=== PATIENT | female | born 1945 | race Caucasian/White ===

== ENCOUNTER → 2019-11-03 | Outpatient (CLI) | payer MEDICARE, OTHER ==
--- NOTE | 2019-11-03 12:03 | KCIC ---
MRI Lumbar Spine without contrast History: Lumbar radiculopathy, right low back pain to the knee for 3 weeks Technique: Multiplanar, multi sequential noncontrast MR imaging was performed of the lumbar spine. Comparison: None Findings: Lumbar vertebral body stature is maintained. There is grade 1 anterior spondylolisthesis L4-5, negligible anterior spondylolisthesis L3-4. There is mild to moderate L4-5 degenerative disc disease, mild disc desiccation L2-3, L3-4, and L5-S1. There is prominent nonspecific edema of the posterior subcutaneous fat of the lower back. There is very large hemangioma of the L3 vertebral body extending to the right pedicle and transverse process, small focus of L1. There is small anterior annular tear L2-3. Conus terminates at mid to superior aspect of L2. 1 cm T2 hyperintense lesion of the visualized left kidney is statistically more likely a cyst. L1-L2: This level was not included on the axial images. Neural foramina and spinal canal are adequate. L2-L3: There is negligible disc osteophyte complex and bulge. There is minimal buckling of the ligamentum flavum. Spinal canal and neural foramina are adequate. L3-L4: There is mild prominence of posterior epidural fat. There is mild buckling of the ligamentum flavum and facet hypertrophic change. There is minimal fluid in the right facet articulation. There is minimal posterior bulge. Spinal canal is overall adequate. Bulge is near the undersurfaces of the exiting L3 nerve roots greater on the right including in the extraforaminal region without displacement, minimal narrowing of the inferior right neural foramen. L4-L5: There is mild buckling of the ligamentum flavum and [id number] facet degenerative change. There is partial uncovering of the posterior aspect of the disc due to spondylolisthesis with minimal superimposed disc osteophyte complex. There is mild narrowing of the far left lateral recess from posteriorly. Neural foramina are overall adequate, no displacement of the exiting L4 nerve roots. L5-S1: There is shallow protrusion eccentric to left lateral recess about 2 to 3 mm AP, near the descending left S1 nerve root without significant impingement or spinal stenosis. There is mild facet degenerative change. There is mild bilateral neural foramina compromise. Impression: 1. There is grade 1 anterior spondylolisthesis at L4-5 and negligible anterior spondylolisthesis L3-4. There is multilevel lumbar facet degenerative change. There is degenerative disc disease greatest at L4-5. There is no significant lumbar spinal stenosis, minimal narrowing of the far left lateral recess at L4-5 and shallow protrusion at L5-S1 near the descending left S1 nerve root without displacement. There is mild bilateral L5-S1 and right L3-4 neural foramina compromise. 2. There is very large hemangioma of L3 vertebral body extending to the right pedicle and transverse process. Electronically signed by: Yefri Rausch MD (11/03/2019 12:00 PM) [id number]
== END ==
LOC: KCIC MRI 10:32
PROVIDERS: ATTEND Physician Assistant Medical
DX: M51.16 Intervertebral disc disorders with radiculopathy, lumbar region (principal); M25.78 Osteophyte, vertebrae; M43.16 Spondylolisthesis, lumbar region
CPT/HCPCS: 72148

== ENCOUNTER → 2019-11-30 | Outpatient (CLI) | payer MEDICARE, OTHER ==
[~2019-11-30] MED LIST: ACET325T9 PO; AMLO10TA4 PO; ASPI-630 PO; CABE0.5T PO; CRESTOR5 MG PO; HYDR-2761 PO; HYDR25TA10 PO; IOHEXOL 180 MG/ML 10 ML VIAL. ONE; IRBE1TAB PO; NITR0.4T22 SL; PANT40TA77 PO; methylPREDNISolone ACETATE 40 MG/ML VIAL. ONE; methylPREDNISolone ACETATE 80 MG/ML VIAL. ONE
--- NOTE | 2019-11-30 11:38 | PDOC2 ---
INITIAL PAIN CONSULT DATE OF SERVICE: DOS: DATE: 11/30/19 TIME: 11:31 CHIEF COMPLAINT: Chief Complaint: Low back and right lower extremity pain HISTORY OF PRESENT ILLNESS: 74-year-old female presents history of pain low back right lower extremity for about 2 months without any specific injury or accident that she is aware of. Patient reports pain is increasing with walking standing changing positions, especially standing from a seated position. Patient reports the pain is stabbing and throbbing in the low back rating the posterior gluteus lateral thigh lateral anterior thigh and medial knee at times mostly in the lateral aspect in the anterior thigh on the right side patient ports no pain on the left side patient reports her disability rating 0-10 10 being the worst is an 8 to a 9 on a scale of 10 with family home responsibilities recreation and social activity. Did have MRI scan lumbar spine showing far left lateral recess narrowing L4-5 and sharp shooting L5-S1 to the descending left S1 nerve root without displacement mild bilateral L5-S1 and right L3-4 neural foraminal compromise L3-4 shows bulge near the undersurface of the exiting L3 nerve roots greater on the right in the extraforaminal region without displacement. Patient reports he has not tried any current physical therapy she is doing some stretching and exercise on her own likes to walk and stay active but that is limiting her significantly patient ports pain does awaken her from sleep at night intermittently but not every night patient reports it can affect her bowel bladder control but no incontinence and does affect her ability to walk she not use any assistive devices however. Patient has tried Ultram as well as Flexeril but both of these it is adverse effects and she is not taking them any longer. Patient reports no loss of motor function but significant fatigability with use of the right lower extremity especially walking for more than about 5 minutes. PAST MEDICAL HISTORY: PMH: Arthritis, hypertension, cardiovascular disease, cigarette smoking quit 3 years ago, liver disease, kidney disease PREVIOUS SURGERIES: Past Surgical Hx: Cholecystectomy 1969 and a facial tumor 1992 CURRENT MEDICATIONS: Current Meds: Active Scripts Medications Dose Route/Sig Max Daily Dose Days Date Category Crestor (Rosuvastatin Calcium) 5 Mg Tablet 10 Mg PO HS 11/30/19 Reported Protonix (Pantoprazole Sodium) 40 Mg Tablet.dr 40 Mg PO DAILYAC 11/30/19 Reported NITROGLYCERIN SubLingual (Nitroglycerin) 0.4 Mg Tab.subl 0.4 Mg SL PRN Q5MIN PRN 11/30/19 Reported Avalide 150-12.5 Mg Tablet (Irbesartan/Hydrochlorothiazide) 1 Each Tablet 1 Each PO DAILY 11/30/19 Reported Hydrocodone-Apap 5-325 (Hydrocodone Bit/Acetaminophen) 1 Tab Tablet 1 Tab PO PRN Q6HRS PRN 11/30/19 Reported Hydrochlorothiazide 25 Mg Tablet 25 Mg PO DAILY 11/30/19 Reported Cabergoline 0.5 Mg Tablet 0.25 Mg PO WEEKLY 11/30/19 Reported Aspirin 81 Mg Tab.chew 1 Tab PO DAILY 11/30/19 Reported Norvasc (Amlodipine Besylate) 10 Mg Tablet 10 Mg PO DAILY 11/30/19 Reported Tylenol (Acetaminophen) 325 Mg Tablet 1,000 Mg PO Q4-6HRS PRN 11/30/19 Reported FAMILY HISTORY: Family Hx: Heart disease SOCIAL HISTORY: Social Hx: Patient does not drink alcohol does not smoke quit 3 years ago does not use any illegal illicit recreational drugs is lives by herself lives locally in [facility] and is currently retired. REVIEW OF SYSTEMS: ROS: Positive for those items mentioned in history of present illness, all systems are reviewed, otherwise negative, is complete full and well-documented on patient's chart PHYSICAL EXAM: VS: Blood pressure is 149/69 pulse 67 respirations 18 temperature 97.8 F height is 5 feet 7 inches weight is 188 pounds PE: PHYSICAL EXAMINATION: GENERAL: The patient is awake, alert, oriented, appropriate, very pleasant demeanor HEENT: Shows normocephalic, atraumatic. Extraocular movements are intact and symmetrical. Oral cavity: Mucous membranes moist and pink. Dentition is intact. NECK: Shows anterior throat supple without palpable lymphadenopathy noted. Swallow reflex symmetrical. CHEST: Shows normal on inspection. Breath sounds are clear bilaterally, distant but no rales rhonchi or wheezes auscultated. HEART: Shows S1, S2 clear. No murmurs auscultated. ABDOMEN: Soft, nontender, nondistended. No palpable organomegaly is noted. No rebound or guarding demonstrated. BACK: Shows spine grossly in the midline. Normal-appearing cervical lordotic curvature. There is slightly increased thoracic kyphosis, some minor flattening of the lumbar lordotic curvature. Lumbar paraspinous muscles show symmetrical on inspection, on palpation shows some moderate tenderness diffusely throughout the upper, middle and lower distribution of the paraspinous muscles bilaterally, but without specific trigger points, without radiation of pain. The patient has good rotational motion of the lumbar spine, both laterally as well as extension and flexion without significant difficulty. No tenderness over the spinous processes, sacrum or sacroiliac regions. EXTREMITIES: Lower extremities show deep tendon reflexes 1+ in the patellar and tendo calcaneus tendons. Motor exam is 4 on a scale of 5 with right dorsiflexion, extension, quadriceps and hamstring flexion and 5/5 on the left. Peripheral pulses are 1+ posterior tibial. No peripheral edema is noted bilaterally. Lower extremities are warm and dry to touch, equal in color and appearance. Straight leg raise noted to be positive on the right about 40 degrees, left side is negative. Gaenslen's and Maurizio's maneuvers are negative as well. The patient is able to stand, stand on her toes without significant difficulty or loss of balance walks with a slight favoring gait favors the right lower extremity mildly but without any assistive devices such as canes or walkers to ambulate.. SKIN: Shows warm and dry, good turgor. No edema. No sores, rashes or bruising throughout. IMPRESSION: Impression: 74-year-old female with approximate 2-month history increasing pain low back right lower extremity radicular fashion. MRI scan lumbar spine as noted. Arthritis Hypertension Liver disease Cardiovascular disease Kidney disease Options were discussed with the patient including conservative management physical therapies and interventional techniques. Patient like to pursue event techniques. We discussed a lumbar epidural steroid injection using description as well as anatomical models to describe the procedure. Risks were discussed including but not limited to: Bleeding, infection, possibility of epidural hematoma and subsequent neurological compromise, dural puncture, headaches, spinal cord and/or nerve damage, side effects of steroid medication, and poor results regarding pain control. Patient understands wished to proceed. Patient return to clinic in approximate 2 weeks for follow-up was counseled as to return appointment active level and side effects to be aware of. Procedure is lumbar epidural steroid injection under local anesthetic using sterile prep and drape at the L3 -4 level using C-arm fluoroscopic guidance in both AP and lateral views medications injected is 120 mg Depo-Medrol + 10 mL preservative-free normal saline and 2 mL contrast- condition at discharge is stable patient tolerated procedure well had no complications. PAIGE FRANCO MD Nov 30, 2019 11:38
== END | disposition home or self-care (01) ==
LOC: PNCL 10:17
PROVIDERS: ATTEND Anesthesiology
DX: M54.5 Low back pain (principal); M79.661 Pain in right lower leg; M19.90 Unspecified osteoarthritis, unspecified site; I10 Essential (primary) hypertension; I25.10 Atherosclerotic heart disease of native coronary artery without angina pectoris; K74.69 Other cirrhosis of liver; Z87.891 Personal history of nicotine dependence; Z98.890 Other specified postprocedural states; Z79.82 Long term (current) use of aspirin; Z79.899 Other long term (current) drug therapy
CPT/HCPCS: 62323; J1030; J1040; Q9965

== ENCOUNTER → 2019-12-14 | Outpatient (CLI) | payer MEDICARE, OTHER ==
--- NOTE | 2019-12-14 10:40 | PDOC ---
Progress Note - Pain Clinic Date of Service: DOS: DATE: 12/14/19 TIME: 10:36 Diagnosis: Dx: Lumbar radiculopathy with lumbar degenerative disc disease History or Present Illness: HPI: 74-year-old female returns follow-up status post lumbar epidurals injection x1. Patient with 97% improvement in the low back and right lower extremity pain. Patient reports that her leg is doing much better still some pain in the back and radiates the right lateral anterior thigh but much better in the leg patient reports he is increasing her activity with greater ease and comfort distance walking doing household activities traveling with greater ease sleeping better at night does not awaken her from sleep at night patient reports the pain is about a 5 on a scale of 10 at its worst and is 0 on average 0 is least and is a 3 today. Patient works as aching across the low back and the right lower extremity again dull shooting at times again much better with last treatment. Patient ports no new motor or sensory deficits no new bowel or bladder i ncontinence or other complaints. Physical Exam: VS: Blood pressure 140/63 pulse 60 respirations 18 temperature 97.8 F height 5 feet 7 inches weight is 1 8 6 pounds PE: PHYSICAL EXAMINATION: GENERAL: The patient is awake, alert, oriented, appropriate, very pleasant demeanor HEENT: Shows normocephalic, atraumatic. Extraocular movements are intact and symmetrical. NECK: Shows anterior throat supple without palpable lymphadenopathy noted. Swallow reflex symmetrical. CHEST: Shows normal on inspection. Breath sounds are clear bilaterally. HEART: Shows S1, S2 clear. No murmurs auscultated. ABDOMEN: Soft, nontender, nondistended. No palpable organomegaly is noted. No rebound or guarding demonstrated. BACK: Shows spine grossly in the midline. Normal-appearing cervical lordotic curvature. There is slightly increased thoracic kyphosis, some minor flattening of the lumbar lordotic curvature. Lumbar paraspinous muscles show symmetrical on inspection, on palpation shows some moderate tenderness diffusely throughout the upper, middle and lower distribution of the paraspinous muscles bilaterally without specific trigger points, without radiation of pain. The patient has good rotational motion of the lumbar spine, both laterally as well as extension and flexion without significant difficulty. No tenderness over the spinous processes, sacrum or sacroiliac regions. EXTREMITIES: Lower extremities show deep tendon reflexes 1+ in the patellar and tendo calcaneus tendons. Motor exam is 4 on a scale of 5 with right dorsiflexion, extension, quadriceps and hamstring flexion and 5/5 on the left. Peripheral pulses are 1+ posterior tibial. No peripheral edema is noted bilaterally. Lower extremities are warm and dry to touch, equal in color and appearance. SKIN: Shows warm and dry, good turgor. No edema. No sores, rashes or bruising throughout. Procedure: Procedure: Options discussed with the patient. Patients chart was reviewed, her current medication regimen updated current review of systems updated today as well. We will proceed with a second in the series lumbar epidural straight injection today with fluoroscopic guidance risks were discussed including but not limited to: Bleeding, infection, possibility of epidural hematoma and subsequent neurological compromise, dural puncture, headaches, spinal cord and/or nerve damage, side effects of steroid medication, and poor results regarding pain control. Patient understands wished to proceed. Patient return to clinic in approximately 2 weeks for follow-up was counseled as to return appointment activity level and side effects to be aware of. Medication Injected: Med Injected: Procedure is lumbar epidural steroid injection under local anesthetic using sterile prep and drape at the L3-4 level using C-arm fluoroscopic guidance in b oth AP and lateral views medications injected is 120 mg Depo-Medrol + 10 mL preservative-free normal saline and 2 mL contrast- condition at discharge is stable patient tolerated procedure well had no complications. Condition at Discharge: Condition at Discharge: Condition at discharge stable patient tolerated procedure well had no complications. PAIGE FRANCO MD Dec 14, 2019 10:40
== END | disposition home or self-care (01) ==
LOC: PNCL 09:20
PROVIDERS: ATTEND Anesthesiology
DX: M51.16 Intervertebral disc disorders with radiculopathy, lumbar region (principal); I10 Essential (primary) hypertension; Z79.82 Long term (current) use of aspirin; Z87.891 Personal history of nicotine dependence; Z79.899 Other long term (current) drug therapy
CPT/HCPCS: 62323; J1030; J1040; Q9965